=== PATIENT | male | born 1990 | race Caucasian/White ===

== ENCOUNTER 2018-10-17 23:27 | Outpatient (CLI) | payer MEDICARE, MEDICAID | END 2018-10-17 23:28 | disposition critical access hospital (66) | LOC: EMS 23:27 | PROVIDERS: ATTEND Surgery | DX: R51 Headache (principal); R11.2 Nausea with vomiting, unspecified | CPT/HCPCS: A0425; A0429 ==

== ENCOUNTER 2018-10-17 23:44 | Emergency (ER) | payer MEDICARE, MEDICAID ==
--- NOTE | 2018-10-18 00:39 | ED Physician Documentation ---
PD HPI ABD PAIN - Stated complaint Stated Complaint: ABD PAIN, N/V, FEELING SICK X 4 WEEKS - Chief complaint Chief Complaint: Abd Pain - History obtained from History obtained from: Patient, EMS - History of Present Illness Timing - onset: How many weeks ago (1-2) Timing - details: Gradual onset, Waxing and waning Pain level now: 4 Quality: Pain Location: All over / everywhere Improved by: No: Eating, Laying still, Vomiting, BM, Position, Meds Worsened by: No: Eating, Moving, Breathing, Position, Palpation Associated symptoms: Nausea, Vomiting. No: Fever Similar symptoms before: Has not had sx before Recently seen: Not recently seen - Additional information Additional information: c/o abd. pain, nausea, vomiting, generalized LI, sinus and chest congestion Review of Systems Constitutional: reports: Reviewed and negative Ears: denies: Ear pain Nose: reports: Rhinorrhea / runny nose, Congestion, Sinus pressure / pain Throat: denies: Sore throat Cardiac: reports: Reviewed and negative Respiratory: reports: Reviewed and negative GI: reports: Abdominal Pain, Nausea, Vomiting. denies: Constipation, Diarrhea : denies: Dysuria, Frequency PD PAST MEDICAL HISTORY - Past Medical History Past Medical History: Yes Cardiovascular: None Respiratory: None Neuro: None Endocrine/Autoimmune: None GI: None : None HEENT: None Psych: Other Musculoskeletal: None Derm: None Other Past Medical History: MOOD DISORDER - Past Surgical History Past Surgical History: No - Present Medications Home Medications: Ambulatory Orders Medication Instructions Recorded Confirmed Ondansetron Odt [Zofran] 4 mg TL Q6H PRN #10 tablet 10/18/18 - Allergies Allergies/Adverse Reactions: Allergies Allergy/AdvReac Type Severity Reaction Status Date / Time No Known Drug Allergies Allergy Verified 10/17/18 23:48 - Social History Does the pt smoke?: No Smoking Status: Former smoker Does the pt drink ETOH?: Yes Does the pt have substance abuse?: No PD ED PE NORMAL - Vitals Vital signs reviewed: Yes - General General: Alert and oriented X 3, No acute distress, Well developed/nourished - HEENT HEENT: Moist mucous membranes - Neck Neck: Supple, no meningeal sign - Cardiac Cardiac: RRR, No murmur, No gallop, No rub - Respiratory Respiratory: No respiratory distress, Clear bilaterally - Abdomen Abdomen: Normal bowel sounds, Soft, Non tender, Non distended - Back Back: No CVA TTP - Derm Derm: Normal color, Warm and dry, No rash Results - Vitals Vitals: Oxygen O2 Source Room air - Labs Labs: Laboratory Tests 10/18/18 10/18/18 10/18/18 01:10 01:10 01:10 WBC 9.6 RBC 5.36 Hgb 16.8 Hct 49.7 MCV 92.8 MCH 31.4 H MCHC 33.8 RDW 12.7 Plt Count 280 MPV 8.2 Neut # (Auto) 7.2 H Lymph # (Auto) 1.6 [place] # (Auto) 0.7 Eos # (Auto) 0.1 Baso # (Auto) 0.1 Absolute Nucleated RBC 0.00 Nucleated RBC % 0.0 Sodium 140 Potassium 4.1 Chloride 98 L Carbon Dioxide 32 Anion Gap 10.0 BUN 14 Creatinine 0.8 Estimated GFR (MDRD) 117 Glucose 122 H Calcium 10.2 Total Bilirubin 1.6 H AST 24 ALT 23 Alkaline Phosphatase 81 Total Protein 9.8 H Albumin 5.1 Globulin 4.7 H Albumin/Globulin Ratio 1.1 Lipase 23 Urine Color YELLOW Urine Clarity CLEAR Urine pH 5.5 Ur Specific [place] 1.025 Urine Protein NEGATIVE Urine Glucose (UA) NEGATIVE Urine Ketones TRACE Urine Occult Blood NEGATIVE Urine Nitrite NEGATIVE Urine Bilirubin NEGATIVE Urine Urobilinogen 0.2 (NORMAL) Ur Leukocyte Esterase NEGATIVE Ur Microscopic Review NOT INDICATED Urine Culture Comments NOT INDICATED PD MEDICAL DECISION MAKING - ED course Complexity details: reviewed results, re-evaluated patient, considered differential, d/w patient Departure - Departure Disposition: 01 Home, Self Care Clinical Impression: Abdominal pain, Vomiting, Sinusitis Condition: Good Instructions: ED Sinusitis No Abx, ED PUD Vs Gastritis, ED Nausea Vomiting, ED Abdominal Pain Unkn Cause Male Prescriptions: Ondansetron Odt [Zofran] 4 mg TL Q6H PRN #10 tablet PRN Reason: Nausea / Vomiting Discharge Date/Time: 10/18/18 02:50
[2018-10-18] MEDS ORDERED: SODIUM CHLORIDE 0.9% 1,000 ML IV STA (01:00)
[2018-10-18] MEDS ORDERED: ONDANSETRON 4 MG/2 ML VIAL IVP STA (01:00)
[2018-10-18 01:27] LABS: BASOPHILS # (AUTO) 0.1 10^3/uL (0.0-0.1); BASOPHILS % (AUTO) 0.5 %; EOSINOPHILS # (AUTO) 0.1 10^3/uL (0.0-0.7); EOSINOPHILS % (AUTO) 0.6 %; HGB - HEMOGLOBIN 16.8 g/dL (14.0-18.0); LYMPHOCYTES # (AUTO) 1.6 10^3/uL (1.5-3.5); LYMPHOCYTES % (AUTO) 17.1 %; MEAN CORPUSCULAR HEMOGLOBIN 31.4 pg (27.0-31.0); MEAN CORPUSCULAR HGB CONC 33.8 g/dL (32.0-36.0); MEAN CORPUSCULAR VOLUME 92.8 fL (80.0-94.0); MEAN PLATELET VOLUME 8.2 fL (7.4-11.4); MONOCYTES # (AUTO) 0.7 10^3/uL (0.0-1.0); MONOCYTES % (AUTO) 7.1 %; NEUTROPHILS # (AUTO) 7.2 10^3/uL (1.5-6.6); NEUTROPHILS % (AUTO) 74.7 %; PLT - PLATELET COUNT 280 10^3/uL (130-450); RED BLOOD COUNT 5.36 10^6/uL (4.70-6.10); RED CELL DISTRIBUTION WIDTH 12.7 % (12.0-15.0); WHITE BLOOD COUNT 9.6 x10^3/uL (4.8-10.8)
[2018-10-18 01:34] LABS: BILIRUBIN,URINE NEGATIVE (NEGATIVE); CLARITY,URINE CLEAR (CLEAR); GLUCOSE, URINE (UA) NEGATIVE (NEGATIVE); KETONES,URINE (UA) TRACE mg/dL (NEGATIVE); LEUKOCYTE ESTERASE, URINE NEGATIVE (NEGATIVE); NITRITE,URINE NEGATIVE (NEGATIVE); OCCULT BLOOD,URINE NEGATIVE (NEGATIVE); PH,URINE 5.5 PH (5.0-7.5); PROTEIN,URINE NEGATIVE (NEGATIVE); UROBILINOGEN,URINE 0.2 (NORMAL) E.U./dL (NORMAL)
[2018-10-18 01:51] LABS: ALBUMIN 5.1 g/dL (3.2-5.5); ALBUMIN/GLOBULIN RATIO 1.1 (1.0-2.2); BILIRUBIN,TOTAL 1.6 mg/dL (0.2-1.0); CALCIUM 10.2 mg/dL (8.5-10.3); CREATININE 0.8 mg/dL (0.6-1.2); TOTAL PROTEIN 9.8 g/dL (6.7-8.2)
[2018-10-18] MEDS ORDERED: ONDANSETRON ODT 4 MG Prepack 2 TL STA (02:06)
[2018-10-18 02:38] VITALS: BP 124/59
== END 2018-10-18 02:50 | disposition home or self-care (01) ==
LOC: ED 23:44
DX: R10.9 Unspecified abdominal pain (principal); R11.2 Nausea with vomiting, unspecified; J32.9 Chronic sinusitis, unspecified; Z87.891 Personal history of nicotine dependence
CPT/HCPCS: 36415; 80053; 81001; 81003; 83690; 85025; 87086; 96374; 99283; 99284

== ENCOUNTER 2018-11-29 23:26 | Outpatient (CLI) | payer MEDICARE, MEDICAID | END 2018-11-29 23:27 | disposition critical access hospital (66) | LOC: EMS 23:26 | PROVIDERS: ATTEND Surgery | DX: T43.201A Poisoning by unspecified antidepressants, accidental (unintentional), initial encounter (principal); S41.112A Laceration without foreign body of left upper arm, initial encounter; S41.111A Laceration without foreign body of right upper arm, initial encounter; W45.8XXA Other foreign body or object entering through skin, initial encounter; Y92.000 Kitchen of unspecified non-institutional (private) residence as the place of occurrence of the external cause; Z72.89 Other problems related to lifestyle | CPT/HCPCS: A0425; A0429 ==

== ENCOUNTER 2018-11-29 23:45 | Emergency (ER) | payer MEDICARE, MEDICAID ==
[2018-11-30] LABS: MUDS CUTOFF CONCENTRATIONS CUTOFF CONC BELOW:
[2018-11-30 00:04] LABS: BILIRUBIN,URINE NEGATIVE (NEGATIVE); CLARITY,URINE CLEAR (CLEAR); GLUCOSE, URINE (UA) NEGATIVE (NEGATIVE); KETONES,URINE (UA) NEGATIVE (NEGATIVE); LEUKOCYTE ESTERASE, URINE NEGATIVE (NEGATIVE); NITRITE,URINE NEGATIVE (NEGATIVE); OCCULT BLOOD,URINE NEGATIVE (NEGATIVE); PROTEIN,URINE NEGATIVE (NEGATIVE); UROBILINOGEN,URINE 0.2 (NORMAL) E.U./dL (NORMAL)
[2018-11-30 00:13] LABS: AMPHETAMINE SCREEN,URINE NEGATIVE (NEGATIVE); BENZODIAZEPINES SCREEN, URINE NEGATIVE (NEGATIVE); COCAINE SCREEN URINE NEGATIVE (NEGATIVE); METHADONE SCREEN, URINE NEGATIVE (NEGATIVE); METHAMPHETAMINES SCREEN, URINE NEGATIVE (NEGATIVE); OPIATE SCREEN, URINE NEGATIVE (NEGATIVE); OXYCODONE SCREEN, URINE NEGATIVE (NEGATIVE); PROPOXYPHENE SCREEN, URINE NEGATIVE (NEGATIVE); TRICYCLIC ANTIDEPRESSANT,URINE NEGATIVE (NEGATIVE)
[2018-11-30 00:14] LABS: BASOPHILS # (AUTO) 0.1 10^3/uL (0.0-0.1); BASOPHILS % (AUTO) 0.8 %; EOSINOPHILS # (AUTO) 0.1 10^3/uL (0.0-0.7); EOSINOPHILS % (AUTO) 1.5 %; HGB - HEMOGLOBIN 14.4 g/dL (14.0-18.0); LYMPHOCYTES # (AUTO) 1.9 10^3/uL (1.5-3.5); LYMPHOCYTES % (AUTO) 27.1 %; MEAN CORPUSCULAR HEMOGLOBIN 31.5 pg (27.0-31.0); MEAN CORPUSCULAR HGB CONC 34.5 g/dL (32.0-36.0); MEAN CORPUSCULAR VOLUME 91.2 fL (80.0-94.0); MEAN PLATELET VOLUME 7.8 fL (7.4-11.4); MONOCYTES # (AUTO) 0.4 10^3/uL (0.0-1.0); MONOCYTES % (AUTO) 5.9 %; NEUTROPHILS # (AUTO) 4.5 10^3/uL (1.5-6.6); NEUTROPHILS % (AUTO) 64.7 %; PLT - PLATELET COUNT 205 10^3/uL (130-450); RED BLOOD COUNT 4.59 10^6/uL (4.70-6.10); RED CELL DISTRIBUTION WIDTH 12.8 % (12.0-15.0)
[2018-11-30 00:26] LABS: ACETAMINOPHEN < 10 ug/mL (10-30); ALBUMIN 4.4 g/dL (3.2-5.5); ALBUMIN/GLOBULIN RATIO 1.5 (1.0-2.2); ALKALINE PHOSPHATASE 64 IU/L (42-121); ALT ALANINE AMINOTRANSFERASE 18 IU/L (10-60); AST ASPARTATE AMINOTRANSFERASE 21 IU/L (10-42); BILIRUBIN,TOTAL 1.3 mg/dL (0.2-1.0); BUN - BLOOD UREA NITROGEN 17 mg/dL (6-20); CALCIUM 9.2 mg/dL (8.5-10.3); CARBON DIOXIDE - CO2 27 mmol/L (21-32); CHLORIDE 103 mmol/L (101-111); CREATININE 0.9 mg/dL (0.6-1.2); GFR - MDRD 102 (>89); GLUCOSE 94 mg/dL (70-100); LIPASE 25 U/L (22-51); SALICYLATE < 6.0 mg/dL; SODIUM 139 mmol/L (135-145); TOTAL PROTEIN 7.4 g/dL (6.7-8.2)
--- NOTE | 2018-11-30 00:31 | ED Physician Documentation ---
PD HPI MHE - Stated complaint Stated Complaint: MHE - Chief complaint Chief Complaint: MHE - History obtained from History obtained from: Patient - History of Present Illness Primary symptom: Self harm - cut, Depression Timing - onset: Today Pain level max: 0 Pain level now: 0 Contributing factors: Substance abuse - ETOH Recently seen: Not recently seen - Additional information Additional information: States long history of depression. worse tonight. Took 60mg of abilify tonight. Also states drank 10 beers today. Pt cuts to relieve stress. States not suicidal now, but is feeling "very depressed" Review of Systems Ten Systems: 10 systems reviewed and negative Constitutional: denies: Fever, Chills Respiratory: denies: Cough GI: denies: Abdominal Pain, Nausea, Vomiting, Constipation, Diarrhea Skin: denies: Rash Musculoskeletal: denies: Neck pain, Back pain Neurologic: denies: Headache PD PAST MEDICAL HISTORY - Past Medical History Past Medical History: Yes Cardiovascular: None Respiratory: None Neuro: None Endocrine/Autoimmune: None GI: None : None HEENT: None Psych: Depression, Other Musculoskeletal: None Derm: None - Past Surgical History Past Surgical History: No - Present Medications Home Medications: Ambulatory Orders Medication Instructions Recorded Confirmed Ondansetron Odt [Zofran] 4 mg TL Q6H PRN #10 tablet 10/18/18 - Allergies Allergies/Adverse Reactions: Allergies Allergy/AdvReac Type Severity Reaction Status Date / Time No Known Drug Allergies Allergy Verified 11/29/18 23:56 - Social History Does the pt smoke?: No Smoking Status: Never smoker Does the pt drink ETOH?: Yes Does the pt have substance abuse?: No - Immunizations Immunizations are current?: Yes - POLST Patient has POLST: No PD ED PE NORMAL - Vitals Vital signs reviewed: Yes - General General: Alert and oriented X 3, No acute distress, Well developed/nourished - HEENT HEENT: PERRL, Moist mucous membranes - Neck Neck: Supple, no meningeal sign - Cardiac Cardiac: RRR, Strong equal pulses - Respiratory Respiratory: No respiratory distress, Clear bilaterally - Abdomen Abdomen: Soft, Non tender, Non distended - Derm Derm: Warm and dry - Extremities Extremities: Other (Abrasions to the bilateral arms. Superficial cuts. None require repair.) - Neuro Neuro: Alert and oriented X 3 - Psych Psych: Other (flat affect) Results - Vitals Vitals: Vital Signs - 24 hr 11/29/18 11/30/18 11/30/18 23:45 00:00 00:33 Temperature 36.4 C L Heart Rate 71 71 71 Respiratory 16 16 17 Rate Blood Pressure 121/76 121/67 116/60 O2 Saturation 95 97 95 11/30/18 11/30/18 11/30/18 01:18 01:50 02:27 Temperature Heart Rate 84 69 70 Respiratory 16 18 16 Rate Blood Pressure 117/69 O2 Saturation 95 96 11/30/18 11/30/18 11/30/18 02:53 03:16 04:13 Temperature 36.2 C L Heart Rate 62 65 Respiratory 18 16 Rate Blood Pressure 109/57 L 109/72 O2 Saturation 96 95 11/30/18 11/30/18 04:20 06:02 Temperature Heart Rate 73 Respiratory 17 16 Rate Blood Pressure O2 Saturation 97 Oxygen O2 Source Room air - EKG (time done) 0011 Rate: Rate (enter#) (68) Rhythm: NSR [place]: Normal Intervals: Normal ME QRS: Normal Ischemia: Normal ST segments - Labs Labs: Laboratory Tests 11/29/18 11/29/18 11/29/18 23:45 23:59 23:59 WBC 7.0 RBC 4.59 L Hgb 14.4 Hct 41.8 L MCV 91.2 MCH 31.5 H MCHC 34.5 RDW 12.8 Plt Count 205 MPV 7.8 Neut # (Auto) 4.5 Lymph # (Auto) 1.9 [place] # (Auto) 0.4 Eos # (Auto) 0.1 Baso # (Auto) 0.1 Absolute Nucleated RBC 0.00 Nucleated RBC % 0.0 Sodium 139 Potassium 3.5 Chloride 103 Carbon Dioxide 27 Anion Gap 9.0 BUN 17 Creatinine 0.9 Estimated GFR (MDRD) 102 Glucose 94 Calcium 9.2 Total Bilirubin 1.3 H AST 21 ALT 18 Alkaline Phosphatase 64 Total Protein 7.4 Albumin 4.4 Globulin 3.0 Albumin/Globulin Ratio 1.5 Lipase 25 TSH Urine Color YELLOW Urine Clarity CLEAR Urine pH 6.0 Ur Specific [place] <=1.005 Urine Protein NEGATIVE Urine Glucose (UA) NEGATIVE Urine Ketones NEGATIVE Urine Occult Blood NEGATIVE Urine Nitrite NEGATIVE Urine Bilirubin NEGATIVE Urine Urobilinogen 0.2 (NORMAL) Ur Leukocyte Esterase NEGATIVE Ur Microscopic Review NOT INDICATED Urine Culture Comments NOT INDICATED Salicylates < 6.0 Urine Opiates Screen NEGATIVE Ur Oxycodone Screen NEGATIVE Urine Methadone Screen NEGATIVE Ur Propoxyphene Screen NEGATIVE Acetaminophen < 10 L Ur Barbiturates Screen NEGATIVE Ur Tricyclics Screen NEGATIVE Ur Phencyclidine Scrn NEGATIVE Ur Amphetamine Screen NEGATIVE U Methamphetamines Scrn NEGATIVE U Benzodiazepines Scrn NEGATIVE Urine Cocaine Screen NEGATIVE U Cannabinoids Screen NEGATIVE Ethyl Alcohol 46.2 11/29/18 23:59 WBC RBC Hgb Hct MCV MCH MCHC RDW Plt Count MPV Neut # (Auto) Lymph # (Auto) [place] # (Auto) Eos # (Auto) Baso # (Auto) Absolute Nucleated RBC Nucleated RBC % Sodium Potassium Chloride Carbon Dioxide Anion Gap BUN Creatinine Estimated GFR (MDRD) Glucose Calcium Total Bilirubin AST ALT Alkaline Phosphatase Total Protein Albumin Globulin Albumin/Globulin Ratio Lipase TSH 0.88 Urine Color Urine Clarity Urine pH Ur Specific [place] Urine Protein Urine Glucose (UA) Urine Ketones Urine Occult Blood Urine Nitrite Urine Bilirubin Urine Urobilinogen Ur Leukocyte Esterase Ur Microscopic Review Urine Culture Comments Salicylates Urine Opiates Screen Ur Oxycodone Screen Urine Methadone Screen Ur Propoxyphene Screen Acetaminophen Ur Barbiturates Screen Ur Tricyclics Screen Ur Phencyclidine Scrn Ur Amphetamine Screen U Methamphetamines Scrn U Benzodiazepines Scrn Urine Cocaine Screen U Cannabinoids Screen Ethyl Alcohol PD MEDICAL DECISION MAKING - ED course Complexity details: reviewed results, re-evaluated patient, considered differential, d/w patient ED course: Patient is medically clear for psychiatric care. He was observed for 8 hours post ingestion of Abilify. He took 60 mg. Poison control was contacted. Will have tele-psychiatry consults and possible social work consult. Patient signed out to Dr. Mercado for final disposition. This document was made in part using voice recognition software. While efforts are made to proofread this document, sound alike and grammatical errors may occur.
[2018-11-30] MEDS ORDERED: TETANUS/DIPHTHERIA/PERTUSSIS 0.5 ML SYRINGE IM ONE (00:45)
--- NOTE | 2018-11-30 08:25 | TELEPSYCH PHYS NOTE ---
Telepsych Note - CHIEF COMPLAINT/HX OF PRESENT ILLNESS Cheif Complaint and History of Present Illness: Name: Raimundo De La Garza : 89. 28M Date: 11/30/18 Time: 10:15am Location of patient: [facility] Location of doctor: [facility] This evaluation was conducted via telepsychiatry with the assistance of onsite staff Chief Complaint: Depression History of Present Illness: Pt seen via televideo with the help of onsite staff. Pt is a 28 yo male with hx of Autistic Spectrum Disorder. States that he sees a psychiatrist and takes abilify for work. Pt is a poor historian, guarded, vague on details and making inconsistent statements. Expressed multiple reasons why loan underwriter should or could not talk to collateral, incluing indicating that he thought that his f riends would all be sleeping at this time. Pt presented to the ED, BIB EMS called by a friend due to safety concerns. Pt reported to ED staff that he has been feeling depressed and took and overdose of his abilify. Stated to ED that he has a long history of depression. To this loan underwriter, he reported that he has no hx of depression. When asked why he was in the hospital, pt reported that he cut himself a little bit. States he cut himself as he was upset and feeling down due to friendship issues. States I am the kind of person that takes care of everyone before me. States that he has come to the realization that his friends take him for granted and dont really care about him. He states that upset him over the past few days. States he drank a lot (out of character for him) and cut himself. Of note, loan underwriter inquired about taking the pills and he reported, I forgot. States he took the pills to go to sleep. Though he admits that he usually takes 1 Abilify in the morning. He states he has never cut himself before and when asked where he got the idea to cut himself, he states, I got it from a giovana who I recently helped. States his friend was attempting to end his life and cut himself. Pt states he sent a group message and video chatted a group of friends about how he was feeling. States they got concerned, seeing all the blood and called 911. When asked if he made any SI statements, pt did not answer. Stated only that he does not want to harm himself now. On ROS, pt denies AVHs, delusions nor HI. Denies current SI. Pt is however s/p cutting himself repeatedly, albeit superficially and ingesting an overdose on his prescribed medications, also non lethal dose. However admits to getting the idea from a friend who tried to kill himself via cutting himself and vague on his rationale for taking the overdose on Abilify. Pt also hesitant to provide collateral. Obtained the number for his brother whom he stated initially was okay with picking him up, then reported that he never called his brother. Pt expressed concern to the pt about his recent actions in the context of worsening depressive sxs. He exhibits very impaired insight and judgment. Pt presents as a danger to himself requiring inpt stabilization. Collateral: Warehouse Distribution Manager unable to reach the pts brother Evelio at the number provided: [phone]. Pt also reporting multiple reasons why loan underwriter should not and could not reach out to the friends who called 911 including that they would all be sleeping. Also indicated that he had the numbers on his phone which was out of power. When loan underwriter indicated the hospital staff could likely find a physical laboratory assistant, he then reported that he did not have any number and only contacts them via [employer]. SI/ Self harm: Pt denies prior ideation nor attempts HI/Violence: pt denies Trauma history: unknown Access to weapons: denies Legal: none reported Psychiatric History/Treatment History: prior outpt. No previous inpt admissions. Drug/Alcohol History: denies drug use. Repors ETOH occasionally. Medical History: none reported Medications & Freq: Abilify 10mg po Daily Allergies: NKDA Sleep: No change. 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 However s/p cutting himself multiple time superficially after obtaining the idea from a friend who recently attempted suicide via cutting himself. Also intential overdose on 60mg of Abilify. usual dose is 10mg. - PSYCHIATRIC HX/TREATMENT HX Psychiatric: Depression, Other - DRUG/ALCOHOL HX ETOH Use: Beer - MEDICAL HX Does the pt have a hx of MRSA?: No Neurological History: None Eyes, Ears, Nose, Throat: None Cardiovascular: None Respiratory: None Skin: None Endocrine/Autoimmune: None Gastrointestinal: None Urinary: None Musculoskeletal: None Blood Disorders: None - HOME MEDICATIONS Home Meds (as last confirmed): Abilify 10mg po Daily, Melatonin PRN - ALLERGIES Allergies (as last confirmed): Allergies Allergy/AdvReac Type Severity Reaction Status Date / Time No Known Drug Allergies Allergy Verified 11/29/18 23:56 - FAMILY PSYCH/SUICIDE/SOCIAL HX-MENTAL Family - Suicide - Social Hx and Mental Status Exam: none known - TREATMENT/PHARMACOLOGICAL RECOMMENDATION Treatment - Pharmacological - Therapy Recommendations: Pt requires acute inpt psychiatric admission For safety, stabilization and treatment. Should the pt not agree to voluntary placement he will require involuntary placement. Can resume home medication regimen tomorrow - TIME SPENT & PROVIDER LOCATION Telepsych consultation conducted via videoconferencing: Yes List names and roles of persons who participated in consult: raimundo Alvarespt)[facility] psychiatrist Telepsych Provider Location: [place] Time Telepsych consult began: 10:15 Time Telepsych consult completed: 10:25
--- NOTE | 2018-11-30 09:16 | ED Physician Documentation ---
PD HPI MHE - Stated complaint Stated Complaint: MHE - Chief complaint Chief Complaint: MHE - History obtained from History obtained from: Patient, Family PD PAST MEDICAL HISTORY - Past Medical History Past Medical History: Yes Cardiovascular: None Respiratory: None Neuro: None Endocrine/Autoimmune: None GI: None : None HEENT: None Psych: Depression, Other Musculoskeletal: None Derm: None - Past Surgical History Past Surgical History: No - Present Medications Home Medications: Ambulatory Orders Medication Instructions Recorded Confirmed Ondansetron Odt [Zofran] 4 mg TL Q6H PRN #10 tablet 10/18/18 - Allergies Allergies/Adverse Reactions: Allergies Allergy/AdvReac Type Severity Reaction Status Date / Time No Known Drug Allergies Allergy Verified 11/29/18 23:56 - Social History Does the pt smoke?: No Smoking Status: Never smoker Does the pt drink ETOH?: Yes ETOH Use: Beer Does the pt have substance abuse?: No - Immunizations Immunizations are current?: Yes - POLST Patient has POLST: No Results - Vitals Vitals: Vital Signs - 24 hr 11/29/18 11/30/18 11/30/18 23:45 00:00 00:33 Temperature 36.4 C L Heart Rate 71 71 71 Respiratory 16 16 17 Rate Blood Pressure 121/76 121/67 116/60 O2 Saturation 95 97 95 11/30/18 11/30/18 11/30/18 01:18 01:50 02:27 Temperature Heart Rate 84 69 70 Respiratory 16 18 16 Rate Blood Pressure 117/69 O2 Saturation 95 96 11/30/18 11/30/18 11/30/18 02:53 03:16 04:13 Temperature 36.2 C L Heart Rate 62 65 Respiratory 18 16 Rate Blood Pressure 109/57 L 109/72 O2 Saturation 96 95 11/30/18 11/30/18 11/30/18 04:20 06:02 08:24 Temperature Heart Rate 73 86 Respiratory 17 16 14 Rate Blood Pressure 124/83 H O2 Saturation 97 98 11/30/18 09:57 Temperature 36.6 C Heart Rate 76 Respiratory 16 Rate Blood Pressure 133/65 H O2 Saturation 97 Oxygen O2 Source Room air - Labs Labs: Laboratory Tests 11/29/18 11/29/18 11/29/18 23:45 23:59 23:59 WBC 7.0 RBC 4.59 L Hgb 14.4 Hct 41.8 L MCV 91.2 MCH 31.5 H MCHC 34.5 RDW 12.8 Plt Count 205 MPV 7.8 Neut # (Auto) 4.5 Lymph # (Auto) 1.9 [place] # (Auto) 0.4 Eos # (Auto) 0.1 Baso # (Auto) 0.1 Absolute Nucleated RBC 0.00 Nucleated RBC % 0.0 Sodium 139 Potassium 3.5 Chloride 103 Carbon Dioxide 27 Anion Gap 9.0 BUN 17 Creatinine 0.9 Estimated GFR (MDRD) 102 Glucose 94 Calcium 9.2 Total Bilirubin 1.3 H AST 21 ALT 18 Alkaline Phosphatase 64 Total Protein 7.4 Albumin 4.4 Globulin 3.0 Albumin/Globulin Ratio 1.5 Lipase 25 TSH Urine Color YELLOW Urine Clarity CLEAR Urine pH 6.0 Ur Specific [place] <=1.005 Urine Protein NEGATIVE Urine Glucose (UA) NEGATIVE Urine Ketones NEGATIVE Urine Occult Blood NEGATIVE Urine Nitrite NEGATIVE Urine Bilirubin NEGATIVE Urine Urobilinogen 0.2 (NORMAL) Ur Leukocyte Esterase NEGATIVE Ur Microscopic Review NOT INDICATED Urine Culture Comments NOT INDICATED Salicylates < 6.0 Urine Opiates Screen NEGATIVE Ur Oxycodone Screen NEGATIVE Urine Methadone Screen NEGATIVE Ur Propoxyphene Screen NEGATIVE Acetaminophen < 10 L Ur Barbiturates Screen NEGATIVE Ur Tricyclics Screen NEGATIVE Ur Phencyclidine Scrn NEGATIVE Ur Amphetamine Screen NEGATIVE U Methamphetamines Scrn NEGATIVE U Benzodiazepines Scrn NEGATIVE Urine Cocaine Screen NEGATIVE U Cannabinoids Screen NEGATIVE Ethyl Alcohol 46.2 11/29/18 23:59 WBC RBC Hgb Hct MCV MCH MCHC RDW Plt Count MPV Neut # (Auto) Lymph # (Auto) [place] # (Auto) Eos # (Auto) Baso # (Auto) Absolute Nucleated RBC Nucleated RBC % Sodium Potassium Chloride Carbon Dioxide Anion Gap BUN Creatinine Estimated GFR (MDRD) Glucose Calcium Total Bilirubin AST ALT Alkaline Phosphatase Total Protein Albumin Globulin Albumin/Globulin Ratio Lipase TSH 0.88 Urine Color Urine Clarity Urine pH Ur Specific [place] Urine Protein Urine Glucose (UA) Urine Ketones Urine Occult Blood Urine Nitrite Urine Bilirubin Urine Urobilinogen Ur Leukocyte Esterase Ur Microscopic Review Urine Culture Comments Salicylates Urine Opiates Screen Ur Oxycodone Screen Urine Methadone Screen Ur Propoxyphene Screen Acetaminophen Ur Barbiturates Screen Ur Tricyclics Screen Ur Phencyclidine Scrn Ur Amphetamine Screen U Methamphetamines Scrn U Benzodiazepines Scrn Urine Cocaine Screen U Cannabinoids Screen Ethyl Alcohol PD MEDICAL DECISION MAKING - ED course Complexity details: reviewed old records, reviewed results, considered differential, d/w patient, d/w family ED course: 28-year old male with a history of autism spectrum disorder who is on Abilify has a history of depression last night he was doing some drinking and he had some issues with a friend which led to some scratching on his arms and taking 6 Abilify pills. He has remorse for these actions this morning and he has a friend who is here who will take him home who will stay with him today and this evening and will help him get an appointment with [facility] as outlined by the social work case manager here today. The patient is comfortable with this plan states he has no suicidal ideations at all. The psychiatrist on tele-psych recommended inpatient treatment for this patient but she was unable to contact his collaterals. The patient does have his friend here now and with the social work case manager he is able to construct a safety plan to include follow-up with [facility] for the missing counseling that the pa tient was not able to get secondary to insurance incompatibility and to have his friend stay with him and to remove the beer from his home. I spoke with the patient's friend he is willing to do both of these things and both the patient and his friend feel this is a safe contract. Departure - Departure Disposition: 01 Home, Self Care Clinical Impression: Depression Qualifiers: Depression Type: other depression Qualified Code(s): F32.89 - Other specified depressive episodes Condition: Stable Instructions: ED Depression Follow-Up: Jesus Alberto Allison MD [Physician No Access] - Comments: Follow-up with [facility] as planned.
[2018-11-30 09:58] VITALS: BP 133/65
== END 2018-11-30 10:14 | disposition home or self-care (01) ==
LOC: EDUNIT# → ED 23:45
DX: T43.592A Poisoning by other antipsychotics and neuroleptics, intentional self-harm, initial encounter (principal); F32.9 Major depressive disorder, single episode, unspecified; F84.0 Autistic disorder; S40.812A Abrasion of left upper arm, initial encounter; S40.811A Abrasion of right upper arm, initial encounter; X78.9XXA Intentional self-harm by unspecified sharp object, initial encounter; Y93.89 Activity, other specified
CPT/HCPCS: 36415; 81003; 83690; 90471; 90715; 93005; 99284; Q3014; 80053; 80306; 80307; 80320; 80329; 81001; 84443; 85025; 87086

== ENCOUNTER 2019-06-08 21:51 | Emergency (ER) | payer MEDICAID, MEDICARE ==
[2019-06-08 22:21] LABS: BASOPHILS % (AUTO) 0.6 %; EOSINOPHILS # (AUTO) 0.1 10^3/uL (0.0-0.7); HGB - HEMOGLOBIN 14.9 g/dL (14.0-18.0); LYMPHOCYTES # (AUTO) 2.2 10^3/uL (1.5-3.5); LYMPHOCYTES % (AUTO) 32.5 %; MEAN CORPUSCULAR HGB CONC 34.3 g/dL (32.0-36.0); MEAN CORPUSCULAR VOLUME 96.5 fL (80.0-94.0); MEAN PLATELET VOLUME 9.5 fL (7.4-11.4); MONOCYTES # (AUTO) 0.4 10^3/uL (0.0-1.0); MONOCYTES % (AUTO) 6.3 %; NEUTROPHILS # (AUTO) 3.9 10^3/uL (1.5-6.6); NEUTROPHILS % (AUTO) 58.4 %; PLT - PLATELET COUNT 201 10^3/uL (130-450); RED BLOOD COUNT 4.51 10^6/uL (4.70-6.10); RED CELL DISTRIBUTION WIDTH 11.8 % (12.0-15.0); WHITE BLOOD COUNT 6.7 x10^3/uL (4.8-10.8)
[2019-06-08 22:32] LABS: ALBUMIN 4.5 g/dL (3.2-5.5); ALBUMIN/GLOBULIN RATIO 1.3 (1.0-2.2); BILIRUBIN,TOTAL 0.9 mg/dL (0.2-1.0); CALCIUM 9.3 mg/dL (8.5-10.3); TOTAL PROTEIN 7.9 g/dL (6.7-8.2)
--- NOTE | 2019-06-08 23:17 | Ultrasound Report ---
Reason: RLE swollen Procedure Date: 06/08/2019 Accession Number: [id number] / [id number] Procedure: US - Duplex Ext Veins Right CPT Code: Final Report FULL RESULT: EXAM: RIGHT LOWER EXTREMITY VENOUS ULTRASOUND EXAM DATE: 06/08/2019 11:08 PM. CLINICAL HISTORY: RLE swollen. COMPARISON: None. TECHNIQUE: Real-time sonographic vascular imaging was performed by the pl sql developer through the lower extremity utilizing both color-flow and Doppler spectral analysis. Multiple inside sales representative static images were saved for review. FINDINGS: Common Femoral Vein (CFV): Normal. CFV-GSV Junction: Normal. Profunda Femoral Vein (PFV): Normal. Femoral Vein (FV) Prox: Normal. Femoral Vein (FV) Mid: Normal. Femoral Vein (FV) Dist: Suboptimally seen. Normal compression. Popliteal Vein: Normal. Posterior Tibial Veins: Suboptimally seen. Normal compression. Peroneal Veins: Suboptimally seen. Normal compression. Other: None. IMPRESSION: No evidence for deep venous thrombosis. RADIA
--- NOTE | 2019-06-08 23:21 | XRAY Report ---
Reason: Swollen RLE Procedure Date: 06/08/2019 Accession Number: [id number] / [id number] Procedure: XR - Ankle 3 View RT CPT Code: Final Report FULL RESULT: EXAM: RIGHT ANKLE RADIOGRAPHY EXAM DATE: 06/08/2019 11:11 PM. CLINICAL HISTORY: Swollen right ankle, nontraumatic. COMPARISON: None. TECHNIQUE: 3 views. FINDINGS: Bones: Normal. No fractures or bone lesions. Joints: Normal. No effusion. No subluxations. The ankle mortise is normally aligned. Soft Tissues: Soft tissue swelling. IMPRESSION: Swollen ankle without osseous abnormality seen. RADIA
--- NOTE | 2019-06-08 23:58 | ED Physician Documentation ---
History of Present Illness - Stated complaint Stated Complaint: RT SWOLLEN FOOT - Chief complaint Chief Complaint: Ext Problem - Additonal information Additional information: This is a 28-year-old male who presents with several weeks of right lower extremity swelling. 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 Review of Systems Constitutional: denies: Fever Skin: denies: Rash Immunocompromised: denies: Immunocompromised PD PAST MEDICAL HISTORY - Past Medical History Past Medical History: No Cardiovascular: None Respiratory: None Neuro: None Endocrine/Autoimmune: None GI: None : None HEENT: None Psych: Depression, Other Musculoskeletal: None Derm: None - Past Surgical History Past Surgical History: No - Present Medications Home Medications: Ambulatory Orders Medication Instructions Recorded Confirmed Cephalexin [Keflex] 500 mg PO Q6H #28 capsule 06/09/19 - Allergies Allergies/Adverse Reactions: Allergies Allergy/AdvReac Type Severity Reaction Status Date / Time No Known Drug Allergies Allergy Verified 06/08/19 21:59 - Social History Does the pt smoke?: No Smoking Status: Never smoker Does the pt drink ETOH?: Yes Does the pt have substance abuse?: No - Immunizations Immunizations are current?: Yes - POLST Patient has POLST: No PD ED PE NORMAL - Vitals Vital signs reviewed: Yes - General General: Alert and oriented X 3, No acute distress - HEENT HEENT: Atraumatic - Cardiac Cardiac: RRR - Respiratory Respiratory: No respiratory distress - Abdomen Abdomen: Non distended - Extremities Extremities: Other (RLE has 1+ edema to the salcido. No Bony tenderness of the foot ankle or salcido. Feet are warm and symmetric in temperature. Sensation is intact light touch over the entire extremity. Capillary refill is brisk. He has active range of motion without discomfort of his ankle and his knee. There is some mild erythema from the dorsal foot up the lower salcido on the right leg.) - Neuro Neuro: Alert and oriented X 3 - Psych Psych: Normal mood, Normal affect Results - Vitals Vitals: Vital Signs - 24 hr 06/08/19 21:56 Temperature 36.6 C Heart Rate 66 Respiratory 18 Rate Blood Pressure 152/89 H O2 Saturation 99 Oxygen O2 Source Room air - Labs Labs: Laboratory Tests 06/08/19 06/08/19 22:14 22:14 WBC 6.7 RBC 4.51 L Hgb 14.9 Hct 43.5 MCV 96.5 H MCH 33.0 H MCHC 34.3 RDW 11.8 L Plt Count 201 MPV 9.5 Neut # (Auto) 3.9 Lymph # (Auto) 2.2 Bell # (Auto) 0.4 Eos # (Auto) 0.1 Baso # (Auto) 0.0 Absolute Nucleated RBC 0.00 Nucleated RBC % 0.0 Sodium 139 Potassium 3.9 Chloride 100 L Carbon Dioxide 31 Anion Gap 8.0 BUN 19 Creatinine 1.0 Estimated GFR (MDRD) 90 Glucose 94 Calcium 9.3 Total Bilirubin 0.9 AST 27 ALT 29 Alkaline Phosphatase 58 Total Protein 7.9 Albumin 4.5 Globulin 3.4 Albumin/Globulin Ratio 1.3 Lipase 25 - Rads (name of study) DVT US RLE Radiology: Other (Negative for blood clot) XR R ankle Radiology: Other (No acute osseous abnormality, soft tissue swelling) PD MEDICAL DECISION MAKING - ED course Complexity details: considered differential (DVT, cellulitis, sprain, strain, fracture) ED course: On exam patient does have Leg swelling and mild erythema extends up to level the salcido. He had no specific inciting trauma though he does Walk to work and move furniture, so there is possibility that he has an overuse injury or subacute trauma. He has no bony tenderness but given he has no swelling on his ankle and this is where he has some discomfort, x-ray was obtained and showed no fracture or subluxation. DVT study is negative. Labs are unremarkable with a normal protein level and no leukocytosis. I discussed these results with the patient, although the chronicity of his findings with a negative white blood cell count argue against cellulitis, given his erythema and lack of other explanation we will try a course of Keflex as well as supportive care with elevation ibuprofen and avoiding injury or strain or overuse of the leg. He already has a follow-up appointment with his primary care provider in the next 9 days, and I discussed that they may want a repeat imaging such as the DVT study at that time. I also discussed that if he has any worsening such as fever pain increasing leg swelling or department. Patient agreed this plan and was discharged home. He is able to ambulate on the leg without issue Departure - Departure Disposition: 01 Home, Self Care Clinical Impression: Right leg swelling Condition: Good Follow-Up: Your,PCP [Other] (In 1-2 weeks for repeat evaluation of leg swelling) Prescriptions: Cephalexin [Keflex] 500 mg PO Q6H #28 capsule Comments: We do not see signs of a blood clot or broken bone on our work-up today. Your labs do not show an obvious sign of infection, but given the redness on your skin we can try a course of antibiotics to see if this helps. Please elevate your legs whenever you are at home or lying down, and avoid straining or overusing the ankle or leg. You may take ibuprofen 600 mg every 6 hours for inflammation and discomfort. If you are developing worsening symptoms such as increasing swelling, fever, or other lesions/rashes in leg return to the ED. Forms: Activity restrictions
[2019-06-09 00:14] VITALS: BP 135/80
== END 2019-06-09 00:14 | disposition home or self-care (01) ==
LOC: ED 21:51
DX: M79.89 Other specified soft tissue disorders (principal); L53.9 Erythematous condition, unspecified
CPT/HCPCS: 36415; 80053; 83690; 85025; 99283; 99284